=== PATIENT | male | born 1995 | race Caucasian/White ===

== ENCOUNTER 2017-07-08 10:11 | Emergency (ER) | payer BC ==
[~2017-07-08] VITALS: Ht 170.2 cm; Wt 60.5 kg
[2017-07-08] MEDS ORDERED: ZYRTEC 10MG10 MG PO (10:29)
[2017-07-08 10:30] VITALS: BP 137/79; TEMP 99.6
[2017-07-08] MEDS ORDERED: SINGULAIR 110 MG/TAB PO (10:30)
[2017-07-08 11:40] LABS: BASO # 0.1 (0.0-0.2); BASO % 0.3 % (0.0-2.0); EOS % 0.1 % (0-4.0); GRAN # 17.1 (1.4-6.5); GRAN % 85.4 % (42.2-75.2); HEMATOCRIT 44.4 % (36.0-47.0); HEMOGLOBIN 14.9 g/dl (12.5-16.1); LYMPH # 1.4 (1.2-3.4); LYMPH % 6.9 % (20.0-51.0); MEAN CELL VOLUME 86 fl (80.0-95.0); MEAN CORPUSCULAR HEMOGLOBIN 29 pg (26.0-32.0); MEAN CORPUSCULAR HGB CONC 34 g/dl (33.0-37.0); MEAN PLATELET VOLUME 9.7 fl (7.4-10.4); MONO # 1.3 (0.1-0.6); MONO % 6.7 % (1.7-9.3); PLATELET COUNT 287 K/mm3 (130-400); RED BLOOD COUNT 5.16 M/mm3 (4.20-5.60); REDCELL DISTRIBUTION WIDTH-CV 11.9 % (11.5-14.5)
[2017-07-08 11:42] LABS: ALBUMIN 3.9 gm/dL (3.5-5.0); BILIRUBIN,TOTAL 0.7 mg/dL (0.0-1.0); CALCIUM 9.2 mg/dL (8.4-10.2); CREATININE, serum 0.82 mg/dL (0.66-1.25); POTASSIUM 4.3 mmol/L (3.4-5.0); TOTAL PROTEIN 8.4 gm/dL (6.4-8.2)
[2017-07-08] MEDS ORDERED: CLEOCIN HC150 MG/CAP PO (12:03)
[2017-07-08] MEDS ORDERED: NORCO 325 MG-51 TAB PO (12:03)
[2017-07-08 12:24] VITALS: PULSE 77
== END 2017-07-08 12:25 | disposition home or self-care (01) ==
LOC: COL.ER 10:11
PROVIDERS: Emergency Medicine
DX: J02.9 Acute pharyngitis, unspecified (principal); Z88.0 Allergy status to penicillin
CPT/HCPCS: J1100; J7030; Q9967